=== PATIENT | female | born 1990 | race Caucasian/White ===

== ENCOUNTER 2022-05-17 01:15 | Emergency (ER) | payer OTHER, SELFPAY ==
[2022-05-17 01:20] VITALS: BP 133/85; PULSE 130; RESP 16; TEMP 35.9; O2SAT 96
[2022-05-17] MEDS: 0.9 % SODIUM CHLORIDE 1000 ml 1,000 ML IV (02:17)
[2022-05-17] MEDS: ONDANSETRON 2 MG/ML inj 4 MG IVP (02:17)
[2022-05-17] MEDS: KETOROLAC 15 MG/ML inj 30 MG IVP (02:17)
[2022-05-17 02:33] LABS: Basophils Absolute Auto 0.04 K/uL (0.00-0.30); Basophils Percent Auto 0.4 % (0.0-3.0); Eosinophils Absolute Auto 0.03 K/uL (0.00-0.50); Eosinophils Percent Auto 0.3 % (0.0-7.0); Hematocrit 45.9 % (33.0-51.0); Hemoglobin* 15.5 gm/dL (12.0-16.0); Immature Granulocytes Abs Auto 0.02 K/uL (0.00-0.30); Lymphocytes Percent Auto 6.5 % (20-44); Mean Corpuscular HGB Conc 34 gm/dL (32-36); Mean Corpuscular Hemoglobin 29 pg (26-34); Mean Corpuscular Volume 85 fL (80-100); Monocytes Percent Auto 6.6 % (0.0-11.0); Platelet Count* 352 K/uL (140-440); RDW Coefficient of Variation % 13.7 % (11.5-15.5); Red Blood Count 5.43 m/uL (4.00-5.20); White Blood Count* 10.69 K/uL (4.50-11.00)
[2022-05-17 02:35] LABS: Slide Review Reflex No
[2022-05-17 02:39] LABS: Appearance Urine Clear (Clear); Bilirubin Urine 1+ (Negative); Blood Urine Trace-intact (Negative); Color Urine Yellow (Yellow); Glucose Urine Negative (Negative); Ketones Urine Negative (Negative); Leukocyte Esterase Urine Negative (Negative); Nitrite Urine Negative (Negative); Protein Urine 1+ (Negative); Specific Gravity Urine >= 1.030 (1.000-1.030); Urobilinogen Urine 0.2 (0.2-1.0); pH Urine 5.5 (5.0-8.5)
[2022-05-17 02:46] LABS: Bacteria Urine Moderate; HCG Qualitative* Negative (Negative); RBC Urine 0-2 (0-2); Squamous Epithelial Cell Urine Moderate (None-Few); WBC Urine 0-2 (0-5)
[2022-05-17 02:47] LABS: Mucus Urine Moderate
[2022-05-17 02:48] LABS: Albumin* 4.1 g/dL (3.3-5.0); Chloride* 105 mmol/L (96-114)
[2022-05-17 02:49] LABS: Potassium* 3.7 mmol/L (3.6-5.1); Sodium* 137 mmol/L (135-149)
[2022-05-17 02:51] LABS: Bilirubin Total* 0.5 mg/dL (0.1-1.5); Estimated Glomerular Filt Rate 77 ml/min
[2022-05-17 02:52] LABS: Alanine Aminotransferase* 18 U/L (4-35); Alkaline Phosphatase* 128 U/L (40-150); Aspartate Amino Transferase* 32 U/L (12-35); Blood Urea Nitrogen* 15 mg/dL (5-24); Calcium* 8.8 mg/dL (8.4-10.6); Carbon Dioxide* 24 mmol/L (20-32); Glucose* 117 mg/dL (60-115); Total Protein* 7.8 g/dL (6.0-8.3)
[2022-05-17 02:55] LABS: C Reactive Protein* 2.6 mg/dL (0.5-1.0)
[2022-05-17 03:16] LABS: PCR FLU A Negative PCR FLU A (Negative); PCR FLU B Negative PCR FLU B (Negative)
[2022-05-17 03:29] LABS: SARS PCR* Negative SARS-CoV-2 (Negative)
--- NOTE | 2022-05-17 03:48 | ED.ABDPAIN ---
HPI - Abdominal Pain General Chief Complaint: Abdominal Pain Stated Complaint: Abdominal pain Time Seen by Provider: 05/17/22 01:47 History of Present Illness HPI narrative: 32-year-old woman presenting to the emergency department with complaint of abdominal pain following vomiting all day. Actually no nausea now. She also had watery stools this morning. Does not note being on recent antibiotics. No fever. She does describe a history of some lack what sounds like lactose intolerance with intolerance to milk. She notes ice creams okay. Certain she is is bother her. She does not note that she got into any of the stuff. Began with throwing up breakfast. No particular exposures. She is vaccinated for COVID. No dysuria frequency urgency. Related Data Home Medications Medication Instructions Recorded Confirmed amitriptyline 25 mg tablet mg 05/17/22 fexofenadine 60 mg-pseudoephedrine tab PO 05/17/22 ER 120 mg tablet,ext.release,12 hr (Monica-D 12 Hour) norethindrone 1 mg-ethinyl tab 05/17/22 estradiol 20 mcg (21)-iron 75 mg (7) tablet sertraline 100 mg tablet mg 05/17/22 sumatriptan 20 mg/actuation nasal mg intranasal 05/17/22 spray Allergies Allergy/AdvReac Type Severity Reaction Status Date / Time Sulfa (Sulfonamide Allergy Severe Hives Verified 05/17/22 01:27 Antibiotics) Review of Systems Status of ROS Reports: 10 or more systems reviewed and unremarkable except as noted in History and below PFSH PFSH Social History Smoking Status: Never smoker Do you use any of these nicotine containing products: None Second hand tobacco smoke exposure: No How often do you have a drink containing alcohol: monthly or less AUDIT-C Alcohol total score: 1 Non-prescribed substance use: denies use Exam Narrative: Exam Narrative: Is pleasant. NAD. Cranial nerves 2-12 intact. Speaking easily. Skin is warm and dry. Moving all extremities without difficulty. She is well perfused peripherally. Oropharynx little sticky. Lungs are clear. Breathing easily. She transitions without notable difficulty. Abdomen is soft and moderately tender across the mid abdomen. Normoactive bowel sounds. No flank pain. Cardiovascular with elevated rate. Appears to be regular rhythm. Const: Vital Signs, click to edit/add: Vital Signs - 24 hr 05/17/22 01:20 Temperature 96.6 F L Pulse Rate [Right Pulse Oximeter] 130 H Respiratory Rate 16 Blood Pressure [Ri ght Upper Arm] 133/85 Pulse Oximetry 96 Oxygen Delivery Me thod Room Air Documenting provider has reviewed patient's vital signs: yes Course Course Hospital Course: Exam and interview above. Initiating on fluid resuscitation. Reevaluation(s) Reevaluation #1: Markedly improved after treatment with ketorolac and Zofran IV hydration. Requesting departure. Vital Signs Vital signs: Initial Vital Signs Temperature 96.6 F L 05/17/22 01:20 Temperature Source Temporal Artery Scan 05/17/22 01:20 Pulse Rate 130 H 05/17/22 01:20 Respiratory Rate 16 05/17/22 01:20 Blood Pressure 133/85 05/17/22 01:20 Blood Pressure Mean 101 05/17/22 01:20 Pulse Oximetry 96 05/17/22 01:20 Oxygen Delivery Method 05/17/22 01:20 Vital Signs Temperature 96.6 F L 05/17/22 01:20 Pulse Rate 130 H 05/17/22 01:20 Respiratory Rate 16 05/17/22 01:20 Blood Pressure 133/85 05/17/22 01:20 Pulse Oximetry 96 05/17/22 01:20 Oxygen Delivery Method 05/17/22 01:20 Temperature 96.6 F L 05/17/22 01:20 Pulse Rate 130 H 05/17/22 01:20 Respiratory Rate 16 05/17/22 01:20 Blood Pressure 133/85 05/17/22 01:20 Pulse Oximetry 96 05/17/22 01:20 Oxygen Delivery Method 05/17/22 01:20 MDM - Abdominal Pain MDM Narrative Medical decision making narrative: Relatively benign presentation those tachycardic. I proposed treating her discomfort and looking for red flags in the labs before proceeding with imaging. Overall labs are reassuring. Urine is concentrated. CRP a little bit elevated. White count was normal. Lab Data Attestation: I reviewed the patient's lab results. Labs: Lab Results 05/17/22 05/17/22 05/17/22 Range/Units 02:00 02:00 02:00 WBC (4.50-11.00) K/uL RBC (4.00-5.20) m/uL Hgb (12.0-16.0) gm/dL Hct (33.0-51.0) % MCV (80-100) fL MCH (26-34) pg MCHC (32-36) gm/dL RDW Coeff of Jenae (11.5-15.5) % Plt Count (140-440) K/uL Neut % (Auto) (42.0-72.0) % Lymph % (Auto) (20-44) % [place] % (Auto) (0.0-11.0) % Eos % (Auto) (0.0-7.0) % Baso % (Auto) (0.0-3.0) % Neut # (Auto) (1.7-7.0) K/uL Lymph # (Auto) (0.90-2.90) K/uL [place] # (Auto) (0.00-0.90) K/UL Eos # (Auto) (0.00-0.50) K/uL Baso # (Auto) (0.00-0.30) K/uL Abs Immat Gran (auto) (0.00-0.30) K/uL Sodium (135-149) mmol/L Potassium (3.6-5.1) mmol/L Chloride (96-114) mmol/L Carbon Dioxide (20-32) mmol/L BUN (5-24) mg/dL Creatinine (0.5-1.5) mg/dL Estimated GFR ml/min Glucose (60-115) mg/dL Calcium (8.4-10.6) mg/dL Magnesium (1.5-2.6) mg/dL Total Bilirubin (0.1-1.5) mg/dL AST (12-35) U/L ALT (4-35) U/L Alkaline Phosphatase (40-150) U/L C-Reactive Protein (0.5-1.0) mg/dL Total Protein (6.0-8.3) g/dL Albumin (3.3-5.0) g/dL HCG, Qual Negative (Negative) Urine Color Yellow (Yellow) Urine Appearance Clear (Clear) Urine pH 5.5 (5.0-8.5) Ur Specific [place] >= 1.030 (1.000-1.030) Urine Protein 1+ A (Negative) Urine Glucose (UA) Negative (Negative) Urine Ketones Negative (Negative) Urine Blood Trace-intact A (Negative) Urine Nitrite Negative (Negative) Urine Bilirubin 1+ A (Negative) Urine Urobilinogen 0.2 (0.2-1.0) Ur Leukocyte Esterase Negative (Negative) Urine RBC 0-2 (0-2) Urine WBC 0-2 (0-5) Ur Squamous Epith Cells Moderate A (None-Few) Urine Bacteria Moderate A (None) Urine Mucus Moderate A (None) SARS-CoV-2 (PCR) Negative SARS-CoV-2 (Negative) Influenza Type A (PCR) Negative PCR FLU A (Negative) Influenza Type B (PCR) Negative PCR FLU B (Negative) 05/17/22 05/17/22 Range/Units 02:15 02:15 WBC 10.69 (4.50-11.00) K/uL RBC 5.43 H (4.00-5.20) m/uL Hgb 15.5 (12.0-16.0) gm/dL Hct 45.9 (33.0-51.0) % MCV 85 (80-100) fL MCH 29 (26-34) pg MCHC 34 (32-36) gm/dL RDW Coeff of Jenae 13.7 (11.5-15.5) % Plt Count 352 (140-440) K/uL Neut % (Auto) 86.0 H (42.0-72.0) % Lymph % (Auto) 6.5 L (20-44) % [place] % (Auto) 6.6 (0.0-11.0) % Eos % (Auto) 0.3 (0.0-7.0) % Baso % (Auto) 0.4 (0.0-3.0) % Neut # (Auto) 9.20 H (1.7-7.0) K/uL Lymph # (Auto) 0.70 L (0.90-2.90) K/uL [place] # (Auto) 0.70 (0.00-0.90) K/UL Eos # (Auto) 0.03 (0.00-0.50) K/uL Baso # (Auto) 0.04 (0.00-0.30) K/uL Abs Immat Gran (auto) 0.02 (0.00-0.30) K/uL Sodium 137 (135-149) mmol/L Potassium 3.7 (3.6-5.1) mmol/L Chloride 105 (96-114) mmol/L Carbon Dioxide 24 (20-32) mmol/L BUN 15 (5-24) mg/dL Creatinine 1.0 (0.5-1.5) mg/dL Estimated GFR 77 ml/min Glucose 117 H (60-115) mg/dL Calcium 8.8 (8.4-10.6) mg/dL Magnesium 2.0 (1.5-2.6) mg/dL Total Bilirubin 0.5 (0.1-1.5) mg/dL AST 32 (12-35) U/L ALT 18 (4-35) U/L Alkaline Phosphatase 128 (40-150) U/L C-Reactive Protein 2.6 H (0.5-1.0) mg/dL Total Protein 7.8 (6.0-8.3) g/dL Albumin 4.1 (3.3-5.0) g/dL HCG, Qual (Negative) Urine Color (Yellow) Urine Appearance (Clear) Urine pH (5.0-8.5) Ur Specific [place] (1.000-1.030) Urine Protein (Negative) Urine Glucose (UA) (Negative) Urine Ketones (Negative) Urine Blood (Negative) Urine Nitrite (Negative) Urine Bilirubin (Negative) Urine Urobilinogen (0.2-1.0) Ur Leukocyte Esterase (Negative) Urine RBC (0-2) Urine WBC (0-5) Ur Squamous Epith Cells (None-Few) Urine Bacteria (None) Urine Mucus (None) SARS-CoV-2 (PCR) (Negative) Influenza Type A (PCR) (Negative) Influenza Type B (PCR) (Negative) Discharge Plan Discharge Clinical Impression: Gastroenteritis, Abdominal pain, Dehydration Patient Disposition: Home, Self-Care Condition: Improved Additional Instructions: Focus on hydration. Slow advance of diet over the next 24-36 hours. Go from diluted juices or broths to thicker soups and smoothies. Might try loperamide for diarrhea if needed. Return for marked increase in pain, intractable vomiting, intractable diarrhea, associated fever. Zofran from [facility]. Prescriptions: No Action sertraline 100 mg tablet Label Comments: TAKE ONE TABLET BY MOUTH EVERY DAY norethindrone-e.estradiol-iron 1 mg-20 mcg (21)/75 mg (7) tablet Label Comments: TAKE ONE TABLET BY MOUTH ONCE DAILY amitriptyline 25 mg tablet Label Comments: TAKE 1 TABLET (25 MG) BY MOUTH AT BEDTIME. sumatriptan 20 mg/actuation spray,non-aerosol INTRANASAL Label Comments: INSTILL 1 SPRAY INTO ONE NOSTRIL 2 TIMES DAILY IF NEEDED FOR MIGRAINE. GIVE AT MINIMUM 2HRS APART. MAX DOSE: 40MG PER 24HRS. fexofenadine-pseudoephedrine [Monica-D 12 Hour] 60-120 mg tablet extended release 12 hr PO Label Comments: TAKE ONE TABLET BY MOUTH 2 TIMES DAILY Follow Up/Referrals: Laurie Gomes, [facility] [Primary Care Provider] - Stand Alone Forms: [employer] Info Instructions
== END 2022-05-17 03:53 | disposition home or self-care (01) ==
PROVIDERS: Emergency Provider Family Medicine; PCP Physician Assistant Medical
DX: K52.9 Noninfective gastroenteritis and colitis, unspecified (principal); R10.9 Unspecified abdominal pain; E86.0 Dehydration
CPT/HCPCS: 36415; 80053; 81003; 81015; 83735; 84703; 85025; 86140; 87086; 87502; 87635; 96374; 96375; 99283; 99284; J1885; J2405; J7030

== ENCOUNTER 2024-02-28 05:14 | Emergency (ER) | payer BC, SELFPAY ==
[2024-02-28 05:23] VITALS: BP 155/104; PULSE 110; RESP 16; TEMP 36.4; O2SAT 97; BMI 39.4
--- NOTE | 2024-02-28 06:03 | ED.GENADULT ---
HPI - General Adult General Chief complaint: Dental/Oral/Mouth Injury/Pain Stated complaint: mouth hurts Time Seen by Provider: 02/28/24 05:46 Source: patient Mode of arrival: ambulatory History of Present Illness HPI narrative: 33-year-old female presents to the emergency department with intermittent sinus congestion over the past 3 weeks. Symptoms started on February 07. Reports that she was evaluated at [facility] on February 09. She was prescribed a nasal steroid spray and started on prednisone for the sinus congestion but also because she was having an eczema flare. Reports that she was on a taper for 12 days and her eczema has cleared up markedly. She states that about 2 days after she stopped the prednisone, she started noticing nasal congestion returning and over the past few days, she has had gradual worsening of left maxillary sinus area pain. She did not know how to describe it therefore she told the nurse that was mouth pain, but there is no tooth pain, throat pain or oral pain of any kind. She points to the zygomatic arch as the area of maximal pain. Does note no fevers, positive nasal congestion. She continues to take an antihistamine/decongestant. She actually made an appointment to be seen back at [facility] for 830 this morning but comes to the ED 3 hours before that because she had trouble sleeping. She did not try taking any Tylenol, ibuprofen or other interventions when her face hurt. She had taken some Excedrin earlier in the day but it certainly had worn off. No trauma or injury, no difficulty swallowing, no sore throat, no breathing difficulty. Past medical history reportedly notable for sulfa allergy, GERD, depression. Home meds are sertraline, control pill, Monica D and amitriptyline. ROS is notable for the HEENT symptoms as described above only, otherwise denies times 12 systems. Related Data Home Medications ?Medication ?Instructions ?Recorded ?Confirmed amitriptyline 25 mg tablet mg 05/17/22 02/26/24 fexofenadine 60 mg-pseudoephedrine tab PO 05/17/22 02/26/24 ER 120 mg tablet,ext.release,12 hr (Monica-D 12 Hour) norethindrone 1 mg-ethinyl tab 05/17/22 02/26/24 estradiol 20 mcg (21)-iron 75 mg (7) tablet sertraline 100 mg tablet mg 05/17/22 02/26/24 sumatriptan 20 mg/actuation nasal mg intranasal 05/17/22 02/26/24 spray omeprazole 20 mg capsule,delayed 20 mg PO DAILY 02/28/24 02/28/24 release Previous Rx's ?Medication ?Instructions ?Recorded doxycycline hyclate 100 mg capsule 100 mg PO BID #15 caps 02/28/24 Allergies Allergy/AdvReac Type Severity Reaction Status Date / Time Sulfa (Sulfonamide Allergy Severe Hives Verified 02/22/24 18:30 Antibiotics) adhesive Allergy Verified 02/22/24 18:30 [facility] Medical History Ingrowing left great toenail ?L60.0 - Ingrowing nail (ICD-10) Social History Smoking Status: Never smoker Do you use any of these nicotine containing products: None Second hand tobacco smoke exposure: No How often do you have a drink containing alcohol: monthly or less AUDIT-C Alcohol total score: 1 Non-prescribed substance use: denies use Exam Const: Vital Signs, click to edit/add: Vital Signs - 24 hr 02/28/24 05:23 Temperature 97.5 F L Pulse Rate [Pulse Oximeter] 110 H Respiratory Rate 16 Blood Pressure [Ri ght Upper Arm] 155/104 H Pulse Oximetry 97 Oxygen Delivery Me thod Room Air Documenting provider has reviewed patient's vital signs: yes Common normals: no apparent distress General appearance: cooperative and well kempt HENMT: Common normals: normocephalic, moist oral mucous membranes, oropharynx normal and dentition normal Head and scalp: normocephalic Other: Nasal mucosa mildly swollen and erythematous. Left maxillary sinus area pain on palpation. Eye: Common normals: PERRL Pupil: PERRL Other: Sclera and conjunctiva are mildly injected but no drainage. Neck & C-Spine: Common normals: full ROM and no lymphadenopathy Resp: Common normals: normal respiratory effort and no use of accessory muscles Effort & inspection: able to speak in complete sentences Cardio: Common normals: regular rate, regular rhythm, S1 normal heart sound, S2 normal heart sound and no murmurs Rate: regular rate Rhythm: regular rhythm Heart sounds: S1 normal and S2 normal Psych: Appearance: well kempt Attitude: calm and engaged Insight: fair Judgement: fair Skin: Common normals: no rashes or lesions noted General skin exam: no rashes or lesions noted Course Course ED Course: Counseled patient diagnosis, no signs of dental caries. No signs of any dangerous emergent conditions. No fevers, signs of encephalitis, meningitis, respiratory distress. Suspect sinusitis. Discussed differential causes including viral infections, bacteria, allergies or inflammation. Has been symptomatic for 3 weeks, was slightly better on prednisone and symptoms have worsened since stopping. Higher risk for bacterial infection. Discussed risks and benefits of antibiotic treatment. Sulfa allergy. Will start doxycycline 1st dose given here in ED. Will continue on b.i.d. dosing for 7-10 days. Counseled on Tylenol and ibuprofen for pain management. It will take several days before she has any relief due to the antibiotics. She will continue appropriate home pain control management. Alarm symptoms reviewed that would warrant ED presentation. She will follow-up in the clinic if her symptoms have not improved 2 days after completion of the antibiotics. Vital Signs Vital signs: Initial Vital Signs Temperature 97.5 F L 02/28/24 05:23 Temperature Source Temporal Artery Scan 02/28/24 05:23 Pulse Rate 110 H 02/28/24 05:23 Respiratory Rate 16 02/28/24 05:23 Blood Pressure 155/104 H 02/28/24 05:23 Blood Pressure Mean 121 H 02/28/24 05:23 Blood Pressure Position Sitting 02/28/24 05:23 Pulse Oximetry 97 02/28/24 05:23 Oxygen Delivery Method Room Air 02/28/24 05:23 Vital Signs Temperature 97.5 F L 02/28/24 05:23 Pulse Rate 110 H 02/28/24 05:23 Respiratory Rate 16 02/28/24 05:23 Blood Pressure 155/104 H 02/28/24 05:23 Pulse Oximetry 97 02/28/24 05:23 Oxygen Delivery Method Room Air 02/28/24 05:23 Temperature 97.5 F L 02/28/24 05:23 Pulse Rate 110 H 02/28/24 05:23 Respiratory Rate 16 02/28/24 05:23 Blood Pressure 155/104 H 02/28/24 05:23 Pulse Oximetry 97 02/28/24 05:23 Oxygen Delivery Method Room Air 02/28/24 05:23 Medications Administered Medications: Generic Name Dose Route Start Last Admin Trade Name Blanco PRN Reason Stop Dose Admin Doxycycline Hyclate 100 mg 02/28/24 06:00 02/28/24 06:04 Doxycycline Hyclate 100 Mg PO 02/28/24 06:01 100 mg ONCE ONE Administration Ketorolac Tromethamine 10 mg 02/28/24 06:00 02/28/24 06:04 Ketorolac 10 Mg Tablet PO 02/28/24 06:01 10 mg ONCE ONE Administration Discharge Plan Discharge Clinical Impression: Left maxillary sinusitis Patient Disposition: Home w/ Parent or Adult Condition: Stable Instructions: Sinusitis (ED) Additional Instructions: As we discussed, the pain along her cheek bone area is from sinus inflammation and possibly infection. This can be caused by allergies, viruses or sometimes bacteria. We do not use antibiotics unless you have had symptoms for a minimum of 2 weeks. I think at this point a trial of antibiotics is worthwhile. I have started you on doxycycline. This may cause a little bit of GI upset and or possibly a vaginal yeast infection. Feel free to use [id number] Monistat if you have vaginal itching or irritation. It will take 2 weeks for symptoms to resolve completely. Make sure you are using a nasal steroid spray as we discussed. For the pain, use Tylenol 1000 mg every 6 hours and or ibuprofen 600 mg every 6 hours. It is okay to use Benadryl or 10 mg of melatonin to help you sleep. You are fully cleared to return to work, school or what ever duties you had plan today. This is a non contagious illness. Follow-up in the clinic if your symptoms are not improving in 2 weeks time Activity Level: No Restrictions Discharge Diet: Regular Prescriptions: New doxycycline hyclate 100 mg capsule 100 mg PO BID Qty: 15 0RF No Action sertraline 100 mg tablet Patient Comments: TAKE ONE TABLET BY MOUTH EVERY DAY norethindrone-e.estradiol-iron 1 mg-20 mcg (21)/75 mg (7) tablet Patient Comments: TAKE ONE TABLET BY MOUTH ONCE DAILY amitriptyline 25 mg tablet Patient Comments: TAKE 1 TABLET (25 MG) BY MOUTH AT BEDTIME. sumatriptan 20 mg/actuation spray,non-aerosol INTRANASAL Patient Comments: INSTILL 1 SPRAY INTO ONE NOSTRIL 2 TIMES DAILY IF NEEDED FOR MIGRAINE. GIVE AT MINIMUM 2HRS APART. MAX DOSE: 40MG PER 24HRS. fexofenadine-pseudoephedrine [Monica-D 12 Hour] 60-120 mg tablet extended release 12 hr PO Patient Comments: TAKE ONE TABLET BY MOUTH 2 TIMES DAILY omeprazole 20 mg capsule,delayed release(DR/EC) 20 mg PO DAILY Follow Up/Referrals: Laurie Gomes, [facility] [Primary Care Provider] - Stand Alone Forms: [email or web address] Instructions
[2024-02-28] MEDS: DOXYCYCLINE HYCLATE 100 MG PO (06:04)
[2024-02-28] MEDS: KETOROLAC 10 MG TABLET PO (06:04)
== END 2024-02-28 06:14 | disposition home or self-care (01) ==
LOC: ED 06:13
PROVIDERS: Emergency Provider Family Medicine; PCP Physician Assistant Medical
DX: J32.0 Chronic maxillary sinusitis (principal)
CPT/HCPCS: 99283; A9270